=== PATIENT | male | born 1955 ===

== ENCOUNTER 2020-05-21 07:00 | Day surgery (SDC) | payer OTHER ==
[~2020-05-21] VITALS: Ht 170.2 cm; Wt 81.2 kg
[~2020-05-21 07:00] MED LIST: ADALAT CC30 MG PO; BREO ELLIPTA 21 EACH IH; CYMBALTA20 MG PO; GABAPENTIN400 MG PO; INDUR PO; METFORMIN HCL500 M3 PO; MYSOLINE50 MG PO; PEPCID AC20 MG PO; PRILOSEC OTC20 MG PO; PROSOM PO; SYNTHROID50 MCG PO; TENORMIN50 M1 PO; XALATAN OP; XANAX1 MG PO; ZOCOR40 MG PO; [UNRECOGNIZED DRUG - OTHER] OP
[2020-05-21] MEDS ORDERED: TRAMADOL HCL50 MG PO (13:19)
[2020-05-21] MEDS ORDERED: DIAZEPAM5 MG PO (13:19)
[2020-05-21] MEDS ORDERED: COLACE100 MG PO (13:19)
[2020-05-21] MEDS ORDERED: MEDROLPACK PO (13:19)
== END 2020-05-22 10:00 | disposition home or self-care (01) ==
LOC: CIR.AMB 07:00 → SURH 15:26 → CIR.AMB 15:26 → O/R 15:26 → SURH 15:28 → O/R 15:28 → CIR.AMB 16:00 → SURH 05-22 14:11
PROVIDERS: ATTEND Orthopaedic Surgery Orthopaedic Surgery of the Spine
DX: M50.01 Cervical disc disorder with myelopathy, high cervical region (principal); M50.021 Cervical disc disorder at C4-C5 level with myelopathy; Z20.822 Contact with and (suspected) exposure to COVID-19; M48.02 Spinal stenosis, cervical region
CPT/HCPCS: 22551; 20930; 22552; 22845; 22853 ×3; C1776